=== PATIENT | female | born 2000 | race Caucasian/White ===

== ENCOUNTER → 2020-06-08 | Outpatient (REF) | payer OTHER, BC ==
[~2020-06-08] MED LIST: PRENTAB9 PO
== END ==
LOC: M SFHCWAGY 12:47
PROVIDERS: ATTEND Advanced Practice Midwife
DX: Z36.89 Encounter for other specified antenatal screening (principal); Z3A.18 18 weeks gestation of pregnancy

== ENCOUNTER 2020-07-01 11:31 | Outpatient (CLI) | payer OTHER, BC ==
[~2020-07-01] VITALS: Ht 167.6 cm; Wt 68.6 kg
[2020-07-01 11:48] VITALS: BP 111/64
[2020-07-01] MEDS ORDERED: PRENTAB9 PO (12:07)
--- NOTE | 2020-07-01 20:50 | IPNPDOC ---
Text Note Date of Service The patient was seen on 07/01/20. NOTE Labor and Delivery Triage Note: S: A 19-year-old 1 para 0 at 21 weeks 2 days estimated gestational age with complaints of decreased movement. Denies contraction/cramping, vaginal bleeding or LOF. O: vss, AF no ctx tracing appropriate for gestation. Audible movements. Gen: well appearing, NAD Abd: gravid, soft, nttp A/P: 19yo G1 at 21w2d with reassuring status -home with PTL precautions -Reassurance provided -f/u at nxt OB appt Carolina Gomez MD VS,Asaf, I+O VS, Aasf, I+O Vital Signs Date Time Temp Pulse Resp B/P (MAP) Pulse Ox O2 Delivery O2 Flow Rate FiO2 07/01/20 11:48 98.8 73 111/64 (80) CAROLINA GOMEZ MD. July 01, 2020 20:50
== END 2020-07-01 12:00 | disposition home or self-care (01) ==
LOC: M LDO 11:31
PROVIDERS: ATTEND Obstetrics & Gynecology
DX: O36.8120 Decreased fetal movements, second trimester, not applicable or unspecified (principal); Z3A.21 21 weeks gestation of pregnancy

== ENCOUNTER → 2020-07-03 | Outpatient (CLI) | payer OTHER, BC ==
--- NOTE | 2020-07-03 14:59 | REP ---
INDICATION: ANATOMY COMPARISON: None. TECHNIQUE: Transabdominal obstetrical ultrasound with color Doppler evaluation. FINDINGS: Examination demonstrates a single live intrauterine in variable presentation. motion is identified by technologist. Placenta is noted anterior and grade 1 without evidence for placenta previa or abruption. Amniotic fluid volume is normal. Cervix measures 3.6 cm in length and appears closed.. Gestational age by LMP 21 weeks 4 days with SRINIVAS 11/09/2020. Gestational age by current measurements 22 weeks 1 day with SRINIVAS 11/05/2020. FHR equals 142 beats per minute. Estimated weight 479 grams (74thpercentile). Anatomical assessment demonstrates normal structures including cranium, choroid plexus, cavum, cerebellum/posterior fossa, facial features, lungs, four-chamber heart, diaphragm, stomach, cord insertion/three-vessel cord, kidneys/bladder, spine, and extremities. IMPRESSION: Single live intrauterine in variable presentation demonstrating appropriate interval growth. Limited evaluation of the cardiac ventricular outflow tract. Remainder of the anatomical assessment is complete and normal. <Electronically signed by Gregory Bianchi > 07/03/20 0028
== END ==
LOC: EDUNIT# 11:30 → M WHC 11:32
PROVIDERS: ATTEND Advanced Practice Midwife
DX: Z34.82 Encounter for supervision of other normal pregnancy, second trimester (principal)

== ENCOUNTER → 2020-07-27 | Outpatient (REF) | payer OTHER, BC | LOC: M SFHCWAGY 09:38 | PROVIDERS: ATTEND Obstetrics & Gynecology | DX: M54.5 Low back pain (principal) ==

== ENCOUNTER → 2020-07-28 | Outpatient (CLI) | payer OTHER, BC ==
--- NOTE | 2020-07-28 15:13 | REP ---
INDICATION: F/U ANATOMY. COMPARISON: 07/03/2020. TECHNIQUE: Real-time sonographic evaluation of the gravid uterus performed. FINDINGS: Estimated gestational age is25 weeks 1 day, EDC 11/09/2020. Today's measurements indicate appropriate growth. Presentation: Breech Placenta anterior, grade 1, without evidence of placenta previa. heart rate is recorded at 136 beats per minute. Amniotic fluid is subjectively normal. Closed cervical length is measured at 3.1 cm. Biometry chart: BPD: 62 mm, 25 weeks 0 days, 48 percentile. HC: 231 mm, 25 weeks 1 days, 49th percentile AC: 218 mm, 26 weeks 2 days, 74th percentile Femur length: 48 mm, 26 weeks 1 days, 73rd percentile HC to AC ratio: 1.06, normal range 1.01-1.20. Estimated weight: 888g, 79th percentile. The four-chamber heart and ventricular outflow tracts are visualized and are grossly unremarkable. IMPRESSION: Viable single intrauterine gestation as above. <Electronically signed by Emerson Dick > 07/28/20 [id number]
== END ==
LOC: M WHC 13:21
PROVIDERS: ATTEND Advanced Practice Midwife
DX: Z36.2 Encounter for other antenatal screening follow-up (principal); Z3A.25 25 weeks gestation of pregnancy

== ENCOUNTER 2020-08-13 21:04 | Emergency (ER) | payer BC, OTHER ==
[~2020-08-13] VITALS: Ht 167.6 cm; Wt 74.5 kg
[2020-08-13 23:06] LABS: BASO % 0.2 % (0.0-1.0); EOS # 0.1 10^3/uL (0.0-0.5); EOS % 0.8 % (0.0-3.0); HEMATOCRIT 34.6 % (36.0-47.0); HEMOGLOBIN 11.9 g/dl (12.0-15.5); LYMPH # 2.1 10^3/uL (1.5-5.0); LYMPH % 14.4 % (24.0-44.0); MEAN CORPUSCULAR HEMOGLOBIN 31.7 pg (27.0-33.0); MEAN CORPUSCULAR HGB CONC 34.4 g/dl (32.0-36.5); MEAN CORPUSCULAR VOLUME 92.3 fl (80.0-96.0); MONO # 0.9 10^3/uL (0.0-0.8); MONO % 5.9 % (2.0-8.0); NEUTROPHILS # 11.6 10^3/uL (1.5-8.5); PLATELET COUNT, AUTOMATED 209 10^3/uL (150-450); RED BLOOD COUNT 3.75 10^6/uL (4.00-5.40); WHITE BLOOD COUNT 14.9 10^3/uL (4.0-10.0)
[2020-08-13 23:31] LABS: BLOOD UREA NITROGEN 11 MG/DL (7-18); CALCIUM LEVEL 8.1 MG/DL (8.5-10.1); CARBON DIOXIDE LEVEL 24 MEQ/L (21-32); CHLORIDE LEVEL 107 MEQ/L (98-107); CREATININE FOR GFR 0.46 MG/DL (0.55-1.30); GLUCOSE, FASTING 87 MG/DL (70-100); POTASSIUM SERUM 3.6 MEQ/L (3.5-5.1); SODIUM LEVEL 138 MEQ/L (136-145)
[2020-08-14] MEDS ORDERED: ONDANSETRON 4MG/2ML VIAL IV ONE (00:05)
[2020-08-14] MEDS ORDERED: NS 1,000 ML IV ONE (00:05)
[2020-08-14 01:43] VITALS: BP 126/68
--- NOTE | 2020-08-14 15:20 | ECGEPIP ---
[facility] - ED Test Date: 2020-08-13 Pat Name: NATALI RENAE Department: Room: - Gender: Female Lan Analyst: CATHI : 2000 Requested By: SIMRAN QUISPE PA-C Order Number: [id number] Reading MD: Luis Mckeon Measurements Intervals [place] Rate: 81 P: 52 AL: 156 QRS: 52 QRSD: 82 T: 34 QT: 378 QTc: 439 Interpretive Statements Normal sinus rhythm Comparison tracing not on file Electronically Signed on 08-14-2020 15:19:54 EDT by Luis Mckeon
== END 2020-08-14 01:45 | disposition home or self-care (01) ==
LOC: M ED 21:04
DX: R06.02 Shortness of breath (principal); T50.991A Poisoning by other drugs, medicaments and biological substances, accidental (unintentional), initial encounter; X58.XXXA Exposure to other specified factors, initial encounter; Y92.89 Other specified places as the place of occurrence of the external cause; Z3A.28 28 weeks gestation of pregnancy
CPT/HCPCS: 80048; 85025; 93005; 96361; 96374; 99284; J2405

== ENCOUNTER → 2020-09-01 | Outpatient (CLI) | payer OTHER, BC ==
[2020-09-01 17:27] LABS: HEMATOCRIT 33.5 % (36.0-47.0); HEMOGLOBIN 10.8 g/dl (12.0-15.5); MEAN CORPUSCULAR HEMOGLOBIN 30.3 pg (27.0-33.0); MEAN CORPUSCULAR HGB CONC 32.2 g/dl (32.0-36.5); MEAN CORPUSCULAR VOLUME 94.1 fl (80.0-96.0); PLATELET COUNT, AUTOMATED 179 10^3/uL (150-450); RED BLOOD COUNT 3.56 10^6/uL (4.00-5.40); WHITE BLOOD COUNT 11.4 10^3/uL (4.0-10.0)
[2020-09-01 18:01] LABS: GLUCOSE CHALLENGE TEST 1 HOUR 62 MG/DL (LESS THAN 140)
== END ==
LOC: M PLALAB 14:04
PROVIDERS: ATTEND Advanced Practice Midwife
DX: Z36.89 Encounter for other specified antenatal screening (principal); Z3A.26 26 weeks gestation of pregnancy

== ENCOUNTER → 2020-10-11 | Outpatient (REF) | payer OTHER, BC | LOC: M SFHCWAGY 09:58 | PROVIDERS: ATTEND Advanced Practice Midwife | DX: Z36.89 Encounter for other specified antenatal screening (principal); Z3A.00 Weeks of gestation of pregnancy not specified ==

== ENCOUNTER 2020-11-02 22:35 | Inpatient (IN) | payer BC, OTHER ==
[~2020-11-02] VITALS: Ht 167.6 cm; Wt 87.1 kg
[2020-11-02 23:01] VITALS: BP 131/70
[2020-11-03] MEDS ORDERED: METHYLERGONOVINE MALEATE 0.2 MG/ML VIAL (J2210) IM PRN (01:20)
[2020-11-03] MEDS ORDERED: LIDOCAINE 1% MDV 20ML VIAL INFIL PRN (01:20)
[2020-11-03] MEDS ORDERED: LACTATED RINGER'S 1000 ML IV STA (01:20)
[2020-11-03] MEDS ORDERED: CARBOPROST TROMETHAMINE 250 MCG/ML AMP IM PRN (01:20)
[2020-11-03] MEDS ORDERED: LR 1,000 ML IV SCH (01:20)
[2020-11-03] MEDS ORDERED: TRANEXAMIC ACID INJection 1,000 MG in NS 100 ML IV PRN (01:20)
--- NOTE | 2020-11-03 01:36 | HPEPDOC ---
Obstetrical History & Physical General Date of Admission Nov 03, 2020 at 01:18 History of Present Illness 19-year-old G1, P0 at 39+1 weeks gestation. Presents with frequent, painful [place] contractions over the past several hours. Denies any loss of fluid or vaginal bleeding. Reports regular movement. ROS: no YAN, cp, sob, fever/chills/nausea/vomiting. course: Uncomplicated PMH: Mild intermittent asthma SH: None Meds: vitamin, Albuterol, Flovent, omeprazole, acetaminophen All: NKDA WAREHOUSE HAND: No STI or dysplasia OB: G1 Sochx: No tobacco, alcohol or drug use FamHx: Diabetes mellitus, Parkinson's labs: Blood type A+, antibody screen negative, HepBsAg neg, HIV neg, rubella immune, Hep C antibody negative, RPR nonreactive, CT/GC neg, urine culture negative, 1 hour glucose challenge test normal, GBS negative imaging: no anomalies or placental abnormalities Past Medical History Allergies Coded Allergies: No Known Allergies (Unverified , 07/01/20) Physical Examination Physical Examination GENERAL: Alert and oriented times three. ABDOMEN: Gravid and non-tender to touch. FETUS: Is vertex (VTX) by sterile vaginal examination (SVE), fetus is vertex (VTX) by Osei. HEART RATE: Regular rate and rhythm. LUNGS: Clear to auscultation (CTA). EXTREMITIES: No edema. No clonus. SVE: 3 cm, 90% effacement, -2 station, bulging membranes, intact, cephalic EFM: Category 1 [place]: Contractions every 3 to 5 minutes Vital Signs/I&O Vital Signs Date Time Temp Pulse Resp B/P (MAP) Pulse Ox O2 Delivery O2 Flow Rate FiO2 11/02/20 23:01 98.6 83 16 131/70 (90) Room Air Assessment/Plan Assessment 19-year-old G1, P0 at 39+1 weeks gestation. Early active labor. Reassuring maternal status. Patient amenable to labor augmentation if necessary. Plan Admit and orient. Charge Entry Clerk and consent. Labs and intravenous (IV) per unit protocol. Counseled on Pitocin and augmentation of labor (IOL). Anticipate . C-S as appropriate. APARNA MA DO Nov 03, 2020 01:36
[2020-11-03 02:00] LABS: HEMATOCRIT 34.9 % (36.0-47.0); HEMOGLOBIN 11.5 g/dl (12.0-15.5); MEAN CORPUSCULAR HEMOGLOBIN 28.9 pg (27.0-33.0); MEAN CORPUSCULAR VOLUME 87.7 fl (80.0-96.0); PLATELET COUNT, AUTOMATED 209 10^3/uL (150-450); RED BLOOD COUNT 3.98 10^6/uL (4.00-5.40); WHITE BLOOD COUNT 15.1 10^3/uL (4.0-10.0)
[2020-11-03 02:39] VITALS: BP 126/70
[2020-11-03 07:11] VITALS: BP 119/64
--- NOTE | 2020-11-03 09:36 | IPNPDOC ---
Text Note Date of Service The patient was seen on 11/03/20. NOTE Subjective: Patient reports her contractions have spaced out. Objective: VS and labs: see below General: Alert and oriented. Patient appeared to be sleeping upon entrance to room. FHR: 120, moderate variability, positive accelerations, no decelerations [place]: irregular and spaced. SVE: 3/90/-1/0, anterior. Minimal change in the last 8 hours. Assessment: IUP 39.1 weeks gestation, not in active labor Plan: Patient discharged to home after discussing options. She knows to return with regular painful contractions. Discharged to home with precautions. Reviewed access to care, kick count, labor signs and danger signs to report. VS,[place]ad[place], I+O VS, [place]ad[place], I+O Laboratory Tests 11/03/20 01:52 Vital Signs Date Time Temp Pulse Resp B/P (MAP) Pulse Ox O2 Delivery O2 Flow Rate FiO2 11/03/20 07:11 98.1 81 18 119/64 (82) 11/02/20 23:01 Room Air ARABELLA AYON CNM Nov 03, 2020 09:36
[2020-11-03] MEDS ORDERED: ACET-683 PO (17:36)
== END 2020-11-03 08:57 | disposition home or self-care (01) | DRG 565 ==
LOC: M LDO 22:35 → M LDI 11-03 01:18
PROVIDERS: ADMIT Obstetrics & Gynecology; ATTEND Obstetrics & Gynecology
DX: O47.1 False labor at or after 37 completed weeks of gestation (principal); Z3A.39 39 weeks gestation of pregnancy; O99.513 Diseases of the respiratory system complicating pregnancy, third trimester; J45.909 Unspecified asthma, uncomplicated

== ENCOUNTER 2020-11-03 17:20 | Inpatient (IN) | payer BC, OTHER ==
[2020-11-03] VITALS (18 sets, daily range): BP systolic 97–136; BP diastolic 50–86
[~2020-11-03] VITALS: Ht 167.6 cm; Wt 86.7 kg
[2020-11-03] MEDS ORDERED: ACET-683 PO (17:36)
[2020-11-03] MEDS ORDERED: HOME MED LIST COMPLETE! XX SCH (17:40)
[2020-11-03] MEDS ORDERED: METHYLERGONOVINE MALEATE 0.2 MG/ML VIAL (J2210) IM PRN (18:10)
[2020-11-03] MEDS ORDERED: CARBOPROST TROMETHAMINE 250 MCG/ML AMP IM PRN (18:10)
[2020-11-03] MEDS ORDERED: PROMETHAZINE INJ 25 MG/ML VIAL (J2550) IV ONE (18:10)
[2020-11-03] MEDS ORDERED: OXYTOCIN DRIP 30 UNITS in IV 1 EA IV PRN (18:10)
[2020-11-03] MEDS ORDERED: LIDOCAINE 1% MDV 20ML VIAL INFIL PRN (18:10)
[2020-11-03] MEDS ORDERED: TRANEXAMIC ACID INJection 1,000 MG in NS 100 ML IV PRN (18:10)
[2020-11-03] MEDS ORDERED: BUTORPHANOL 2 MG/ML INJ (J0595) IV ONE (18:10)
[2020-11-03 19:30] LABS: HEMATOCRIT 34.8 % (36.0-47.0); HEMOGLOBIN 11.4 g/dl (12.0-15.5); MEAN CORPUSCULAR HEMOGLOBIN 28.8 pg (27.0-33.0); MEAN CORPUSCULAR HGB CONC 32.8 g/dl (32.0-36.5); MEAN CORPUSCULAR VOLUME 87.9 fl (80.0-96.0); PLATELET COUNT, AUTOMATED 221 10^3/uL (150-450); RED BLOOD COUNT 3.96 10^6/uL (4.00-5.40)
[2020-11-03] MEDS ORDERED: LR 1,000 ML IV ONE (20:50)
[2020-11-03] MEDS ORDERED: FENTANYL 2MCG/ML ROPIVACAINE 0.2% IN 0.9% NACL 100ML IVBAG As Ordered ONE (21:00)
[2020-11-03] MEDS ORDERED: ePHEDrine SULFATE 25 MG/5 ML(5MG/ML) SYRINGE IV PRN (21:15)
[2020-11-03] MEDS ORDERED: FENTANYL/ROPIVACAINE/NACL BAG 100 ML EPIDURAL SCH (21:15)
[2020-11-03] MEDS ORDERED: NALOXONE INJ 0.4MG/1ML VIAL (J2310 PER 1MG) IV PRN (21:15)
[2020-11-03] MEDS ORDERED: EPIDURAL COMMENT XX SCH (21:15)
[2020-11-03] MEDS ORDERED: REFRIGERATOR IV KEYS XX PRN (21:15)
[2020-11-03] MEDS ORDERED: EPIDURAL/PCA KEYS XX PRN (21:15)
[2020-11-03] MEDS ORDERED: LACTATED RINGER'S 1000 ML IV PRN (21:15)
[2020-11-03] MEDS ORDERED: diphenhydrAMINE 50MG/ML VIAL (J1200) IV PRN (21:15)
[2020-11-03] MEDS ORDERED: ONDANSETRON 4MG/2ML VIAL IV PRN (21:15)
[2020-11-03] MEDS ORDERED: OXYTOCIN DRIP 30 UNITS in IV 1 EA IV SCH (22:05)
[2020-11-03] MEDS: LR 1,000 ML IV SCH (23:18)
--- NOTE | 2020-11-03 23:18 | HPEPDOC ---
Obstetrical History & Physical General Date of Admission Nov 03, 2020 at 18:17 Primary Care Physician: ARABELLA AYON CNM History of Present Illness Marlyn is a 19-year-old female who is a AT 39.1 weeks gestation with an SRINIVAS of 11/09/20 based off of her LMP. She initiated care in [place] and transferred care to [facility]. Her has been uncomplicated. She presents to L&D with complaints of painful contractions and bloody show. She was discharged this morning as her cervix hadn't changed and her contractions spaced. She denies leaking of fluid. Reports active movement. Chief Complaint: Active Labor Information Provided By: Patient Age: 19 : 1 Term: 0 Pre-term: 0 Abortions: 0 Livin Care Care: Good Care Dating Final EDC: Nov 09, 2020 Final EDC by: LMP EGA at Admission: 39.1 Antepartum Course Height (inches): 66 Pre- weight (lbs.): 140 Admission Weight (lbs.): 191 Change in Weight (lbs.): 51 Past Medical History Past Obstetrical History : Past Obstetrical History: Primgravida CARDIAC CATH LAB MANAGER History: No pertinent history Past Medical History Medical History Asthma lactose intolerance broken left arm and collar bone Surgical History: Denies/None Family History Significant Family History: Diabetes, Other (parkinson's) Social History Marital Status: Family situation: Spouse/partner home Psychosocial History: No pertinent psych hx * Smoker: non-smoker Alcohol: Denies Drugs: denies Abuse Violence Screening Have you been hit/kicked/slapp: No Have you been sexually assault: No Allergies Coded Allergies: No Known Allergies (Unverified , 07/01/20) Medications Scheduled PRN Acetaminophen (Acetaminophen) 500 Mg Tablet, 1,000 MG PO Q6H PRN for BACK PAIN Physical Examination Physical Examination GENERAL: Alert and oriented times three. ABDOMEN: Gravid and non-tender to touch. FETUS: Is vertex (VTX) by sterile vaginal examination (SVE), fetus is vertex (VTX) by Osei. EFW 8 lbs. LUNGS: Clear to auscultation (CTA). EXTREMITIES: No edema. No clonus. Deep tendon reflexes (DTRs) + 2. Vital Signs/I&O Vital Signs Date Time Temp Pulse Resp B/P (MAP) Pulse Ox O2 Delivery O2 Flow Rate FiO2 11/03/20 22:39 85 18 98/57 (71) 11/03/20 19:36 98.2 Laboratory Data 24H LABS Laboratory Tests 2 11/03/20 18:24: Serology Scanned Report Hepatitis B Testing 11/03/20 19:00: Nucleated Red Blood Cells % (auto) 0.0, Syphilis Serology NONREACTIVE CBC/BMP Laboratory Tests 11/03/20 19:00 Pertinent Laboratoy Data Blood Type: A+ RBC Antibody Screen: Negative HIV: Negative Hepatitis B: Negative Hepatitis C: Negative Rapid Plasma Reagin: Nonreactive Rubella: Immune Varicella: Immune Chlamydia/Gonorrhea: Negative Group B Streptococcus: Negative Quad Screen Test: Negative Glucose Tolerance Test: 62 Anatomy Ultrasound Ultrasound Date: Jul 28, 2020 Placenta Location: Anterior Normal Anatomy: Yes Placenta Previa: No Estimated Weight (grams): 888 Vaginal Examination Dilation: 4 cm (4-5 cm) Effacement: 90% Station: 0 Cervical Consistency: Soft Cervical Position: Anterior Presentation: Cephalic presentation Assessment Heart Rate (FHR): 130 Variability: Moderate Accelerations: Positive Decelerations: None Tocometer Contractions: Yes Frequency: regular Multi-drug resistant Organism: No history of MDRO Assessment/Plan Assessment IUP at 39.1 weeks gestation Category I FHR tracing Active labor GBS negative Plan Admit to L&D. OOB ad danica. Diet: clears. Group B Streptococcus (GBS) negative. Labs and intravenous (IV) per unit protocol. Anesthesia consult per patient's request. Lactated Ringers (LR): Bolus 800 mL prior to epidural, then at 125 mL/hr. Anticipate cervical change. C-S as appropriate. ARABELLA AYON CNM Nov 03, 2020 23:18
[2020-11-04] VITALS (15 sets, daily range): BP systolic 92–127; BP diastolic 51–85
[2020-11-04] MEDS: LR 1,000 ML IV SCH (02:23)
[2020-11-04] MEDS ORDERED: METHYLERGONOVINE MALEATE 0.2 MG TAB PO PRN (04:35)
[2020-11-04] MEDS ORDERED: MOM 30ML SUSPENSION UDC PO PRN (04:35)
[2020-11-04] MEDS ORDERED: RHOGAM 300 MCG (1500 IU) INJ (J2790) IM SCH (04:35)
[2020-11-04] MEDS ORDERED: MEASLES,MUMPS,RUBELLA VACCINE INJ (MMR-II) (90707) SC SCH (04:35)
[2020-11-04] MEDS ORDERED: ACETAMINOPHEN TAB 650MG DOSE (2X325MG) PO PRN (04:35)
[2020-11-04] MEDS ORDERED: ANUSOL HC CREAM 30GM TOP PRN (04:35)
[2020-11-04] MEDS ORDERED: DIBUCAINE 1% OINTMENT 30GM TOP PRN (04:35)
--- NOTE | 2020-11-04 05:12 | DNPDOC ---
[facility] Delivery Note Delivery Note DATE OF DELIVERY: 11/04/20 at 0352 PREDELIVERY DIAGNOSIS: 39-2/7 weeks' gestation and labor. POST DELIVERY DIAGNOSIS: Delivered. PROCEDURE: Spontaneous vaginal delivery. AMMUNITION STORAGE SUPERINTENDENT: Arabella Oquendo CNM, ARON ANESTHESIA: epidural. ESTIMATED BLOOD LOSS: 250 mL. FINDINGS: 7 pounds 7 ounces; 3370 grams; female infant, Score 8/9. DELIVERY SUMMARY: Marlyn is a 19-year-old female who is now a who presented to L&D i active labor. She requested an epidural for pain management. She was also augmented with IV Pitocin and AROM was done at 2349 to a moderate amount of clear fluid. She progressed to fully dilated at 0331 and pushed to a living female in the YUMI position with restitution to ROT. The anterior shoulder delivered with ease and the corpus immediately followed. The baby was placed [id number] active and crying. The cord was clamped x2 after pulsation ceased and cut by the FOB. The placenta delivered spontaneously and intact at 0357. Uterine hemostasis was achieved via rapid infusion of IV Pitocin and fundal massage. The vagina, cervix, and placenta was inspected and found to have a second degree perineal laceration that was repaired with a 3.[address]- 1. Mom plans to breastfeed. They are naming her Haven. Both mom and baby are in stable condition. All counts of instruments and sponges are correct. ARABELLA OQUENDO CNM Nov 04, 2020 05:12
[2020-11-04] MEDS: ACETAMINOPHEN 500 MG TAB PO PRN ×2 (06:38→21:56)
[2020-11-04] MEDS: IBUPROFEN 800 MG TAB PO PRN (06:38)
[2020-11-04] MEDS: PRENATAL VITAMINS CHEWABLE TABLET PO SCH (10:08)
[2020-11-04] MEDS: IBUPROFEN 600MG TAB PO PRN (16:53)
[2020-11-04] MEDS: DOCUSATE SODIUM 100MG CAPSULE PO PRN (21:55)
[2020-11-05] MEDS: IBUPROFEN 600MG TAB PO PRN ×2 (00:24→07:51)
[2020-11-05 06:15] VITALS: BP 110/59
[2020-11-05] MEDS: PRENATAL VITAMINS CHEWABLE TABLET PO SCH (07:51)
[2020-11-05] MEDS ORDERED: INFLUENZA QUADRIVALENT PF VACCINE 0.5ML SYRINGE IM ONE (09:00)
--- NOTE | 2020-11-05 09:08 | IPNPDOC ---
Progress Note Date of Service: Nov 05, 2020 Day#: 1 Progress Note SUBJECT: Doing well without complaints. Ambulating, voiding and pain is well-c ontrolled. Reports minimal lochia. OBJECTIVE: VITAL SIGNS: Within normal limits, afebrile. Alert and oriented times three. Abdomen: Fundus firm at U-2. Soft, NTTP. Ext: neg calf tenderness. ASSESSMENT: day #1 status post . Recovering in stable condition. PLAN: 1. Continue routine care 2. Discharge plans for tomorrow VS, I&O, 24H, Fishbone Vital Signs/I&O Vital Signs Date Time Temp Pulse Resp B/P (MAP) Pulse Ox O2 Delivery O2 Flow Rate FiO2 11/05/20 06:15 96.9 66 14 110/59 (76) 99 I&O- Last 24 Hours up to 6 AM 11/05/20 06:00 Output Total 950 ml Balance -950 ml ERIC MELENDEZ MD. Nov 05, 2020 09:08
[2020-11-05 17:58] VITALS: BP 135/80
[2020-11-05] MEDS: DOCUSATE SODIUM 100MG CAPSULE PO PRN (19:52)
[2020-11-05] MEDS: IBUPROFEN 800 MG TAB PO PRN (19:52)
[2020-11-06 06:00] VITALS: BP 111/64
[2020-11-06] MEDS: IBUPROFEN 800 MG TAB PO PRN (06:00)
[2020-11-06] MEDS: PRENATAL VITAMINS CHEWABLE TABLET PO SCH (09:53)
== END 2020-11-06 13:01 | disposition home or self-care (01) | DRG 560 ==
LOC: M LDO 17:20 → M LDI 18:17 → M OBS 11-04 07:40
PROVIDERS: ADMIT Advanced Practice Midwife; ATTEND Advanced Practice Midwife
PROC: 10E0XZZ Delivery of Products of Conception, External Approach (ICD-10-PCS; principal; 2020-11-04)
PROC: 0KQM0ZZ Repair Perineum Muscle, Open Approach (ICD-10-PCS; 2020-11-04)
PROC: 10907ZC Drainage of Amniotic Fluid, Therapeutic from Products of Conception, Via Natural or Artificial Opening (ICD-10-PCS; 2020-11-04)
DX: O70.1 Second degree perineal laceration during delivery (principal); Z37.0 Single live birth; Z3A.39 39 weeks gestation of pregnancy

== ENCOUNTER 2021-09-10 18:39 | Emergency (ER) | payer BC, OTHER ==
[~2021-09-10] VITALS: Ht 165.1 cm; Wt 66.0 kg
[~2021-09-10 18:39] MED LIST changes: +ACET-683 PO
[2021-09-10 19:15] LABS: BASO # 0.1 10^3/uL (0.0-0.2); BASO % 0.8 % (0.0-1.0); EOS # 0.5 10^3/uL (0.0-0.5); EOS % 7.7 % (0.0-3.0); HEMATOCRIT 35.8 % (36.0-47.0); HEMOGLOBIN 12.2 g/dl (12.0-15.5); LYMPH # 2.3 10^3/uL (1.5-5.0); LYMPH % 37.5 % (24.0-44.0); MEAN CORPUSCULAR HGB CONC 34.1 g/dl (32.0-36.5); MONO # 0.4 10^3/uL (0.0-0.8); MONO % 7.1 % (2.0-8.0); NEUTROPHILS # 2.9 10^3/uL (1.5-8.5); NEUTROPHILS % 46.7 % (36.0-66.0); PLATELET COUNT, AUTOMATED 182 10^3/uL (150-450); RED BLOOD COUNT 4.07 10^6/uL (4.00-5.40); WHITE BLOOD COUNT 6.2 10^3/uL (4.0-10.0)
[2021-09-10 20:16] LABS: BLOOD UREA NITROGEN 7 MG/DL (7-18); CALCIUM LEVEL 8.4 MG/DL (8.5-10.1); CARBON DIOXIDE LEVEL 24 MEQ/L (21-32); CHLORIDE LEVEL 108 MEQ/L (98-107); CREATININE FOR GFR 0.58 MG/DL (0.55-1.30); GLUCOSE, FASTING 93 MG/DL (70-100); HCG, SERUM QUANTITATIVE 5512 MIU/ML; POTASSIUM SERUM 3.7 MEQ/L (3.5-5.1); SODIUM LEVEL 139 MEQ/L (136-145)
[2021-09-10] MEDS ORDERED: IBUP80TA PO (22:27)
[2021-09-10 22:32] VITALS: BP 137/70
== END 2021-09-10 22:36 | disposition home or self-care (01) ==
LOC: M ED 18:39
DX: O03.4 Incomplete spontaneous abortion without complication (principal)

== ENCOUNTER 2021-09-12 07:10 | Emergency (ER) | payer BC, OTHER ==
[~2021-09-12] VITALS: Ht 165.1 cm; Wt 64.9 kg
[~2021-09-12 07:10] MED LIST changes: +IBUP80TA PO
[2021-09-12] MEDS ORDERED: NS 1,000 ML IV ONE (07:30)
[2021-09-12 08:46] LABS: HEMOGLOBIN 12.4 g/dl (12.0-15.5); MEAN CORPUSCULAR HEMOGLOBIN 29.8 pg (27.0-33.0); MEAN CORPUSCULAR HGB CONC 33.5 g/dl (32.0-36.5); MEAN CORPUSCULAR VOLUME 88.9 fl (80.0-96.0); PLATELET COUNT, AUTOMATED 181 10^3/uL (150-450); RED BLOOD COUNT 4.16 10^6/uL (4.00-5.40); WHITE BLOOD COUNT 6.6 10^3/uL (4.0-10.0)
[2021-09-12 10:36] VITALS: BP 113/58
== END 2021-09-12 10:43 | disposition home or self-care (01) ==
LOC: M ED 07:10
DX: O03.9 Complete or unspecified spontaneous abortion without complication (principal)

== ENCOUNTER → 2021-09-18 | Outpatient (CLI) | payer BC, OTHER | LOC: M RAD 16:17 | PROVIDERS: ATTEND Advanced Practice Midwife | DX: O02.1 Missed abortion (principal) ==